=== PATIENT | female | born 1955 | race Caucasian/White ===

== ENCOUNTER → 2016-07-19 | Outpatient (CLI) | payer OTHER ==
[~2016-07-19] MED LIST: ESTR0.3T PO; HYDR-3138 PO; HYDR25TA6 PO; OMEP-110 PO; POTA10TA17 PO; Statin PO
== END | disposition home or self-care (01) ==
LOC: STAR 13:20
PROVIDERS: ATTEND Thoracic Surgery (Cardiothoracic Vascular Surgery)
DX: Z01.818 Encounter for other preprocedural examination (principal)
CPT/HCPCS: 93005

== ENCOUNTER 2016-08-29 11:56 | Inpatient (IN) | payer OTHER ==
[~2016-08-29] VITALS: Ht 152.4 cm; Wt 103.9 kg
[~2016-08-29 11:56] MED LIST changes: +BUPIVACAINE/PF-EPI 0.5% 1:200K ONE
[2016-08-29] MEDS ORDERED: LACTATED RINGERS 1,000 ML IV SCH (12:19)
[2016-08-29 12:51] VITALS: BP 156/93
[2016-08-29] MEDS ORDERED: NEOSTIGMINE 1 MG/ML, 10ML ONE (15:50)
[2016-08-29] MEDS ORDERED: DEXAMETHASONE 4 MG/ML, 1ML ONE (15:50)
[2016-08-29] MEDS ORDERED: GLYCOPYRROLATE 0.2MG/1ML ONE (15:50)
[2016-08-29] MEDS ORDERED: PROPOFOL 10 MG/ML, 20ML ONE (15:50)
[2016-08-29] MEDS ORDERED: KETOROLAC 30 MG/1 ML ONE ×2 (15:50→19:11)
[2016-08-29] MEDS ORDERED: ONDANSETRON 2MG/ML, 2ML ONE (15:50)
[2016-08-29] MEDS ORDERED: CEFAZOLIN 1,000 MG ONE (15:50)
[2016-08-29] MEDS ORDERED: ROCURONIUM 10 MG/ML ONE (15:50)
[2016-08-29] MEDS ORDERED: FENTANYL PF 250 MCG/5ML ONE (15:52)
[2016-08-29] MEDS ORDERED: FENTANYL PF 100 MCG/2ML IV PRN (16:30)
[2016-08-29] MEDS ORDERED: METOPROLOL 1 MG/ML, 5ML IV PRN (16:30)
[2016-08-29] MEDS ORDERED: PROMETHAZINE 25 MG/ML, 1ML IV PRN (16:30)
[2016-08-29] MEDS ORDERED: MEPERIDINE/PF 25MG/0.5ML IVPush PRN (16:30)
[2016-08-29] MEDS ORDERED: OXYcodone 5 MG/5 ML ORAL.SOL UDC PO PRN ×2 (16:30→18:30)
[2016-08-29] MEDS ORDERED: ALBUTEROL/IPRATROPIUM 2.5MG/0.5MG, 3 ML NPPB PRN (16:30)
[2016-08-29] MEDS ORDERED: hydrALAzine 20 MG/ML, 1ML IV PRN ×2 (16:30→18:30)
[2016-08-29] MEDS ORDERED: ACETAMINOPHEN 325 MG TABLET PO PRN (16:30)
[2016-08-29] MEDS ORDERED: HYDROmorphone 1 MG/ML, 1ML ONE ×3 (16:47→19:18)
[2016-08-29] MEDS ORDERED: ENALAPRILAT 1.25 MG/ML, 2ML IV PRN (18:30)
[2016-08-29] MEDS ORDERED: PROMETHAZINE 12.5 MG SUPP PR PRN (18:30)
[2016-08-29] MEDS ORDERED: PROMETHAZINE 25 MG/ML, 1ML IM PRN (18:30)
[2016-08-29] MEDS ORDERED: LORazepam 1MG TABLET PO PRN (18:30)
[2016-08-29] MEDS ORDERED: DIPHENHYDRAMINE 25 MG CAPSULE PO PRN (18:30)
[2016-08-29] MEDS ORDERED: ONDANSETRON 2MG/ML, 2ML IVPush PRN (18:30)
[2016-08-29] MEDS ORDERED: LORazepam 2 MG/ML, 1ML IV PRN (18:30)
[2016-08-29] MEDS ORDERED: DIPHENHYDRAMINE 50 MG/ML, 1ML IV PRN (18:30)
[2016-08-29] MEDS ORDERED: OXYcodone 5 MG/5 ML ORAL.SOL UDC ONE (18:41)
[2016-08-29] MEDS ORDERED: ACETAMINOPHEN 650 MG/20.3 ML UDC ONE (18:42)
[2016-08-29] MEDS ORDERED: ACETAMINOPHEN 325 MG/10.15 ML UDC ONE (18:42)
[2016-08-29] MEDS: HYDROmorphone 1 MG/ML, 1ML IV PRN ×3 (19:00→19:20)
[2016-08-29] MEDS ORDERED: PROMETHAZINE 25 MG/ML, 1ML ONE (19:30)
[2016-08-29 20:05] VITALS: BP 139/86
[2016-08-29] MEDS: FAMOTIDINE 20 MG/2 ML IV SCH (21:50)
[2016-08-29] MEDS: LACTATED RINGERS 1,000 ML IV SCH (23:52)
[2016-08-29 23:56] VITALS: BP 122/86
[2016-08-30] MEDS: CEFAZOLIN PMX 2GM/50ML 50 ML IVPB SCH ×2 (00:46→08:18)
[2016-08-30 03:12] VITALS: BP 139/86
[2016-08-30 07:01] VITALS: BP 106/69
[2016-08-30] MEDS: LACTATED RINGERS 1,000 ML IV SCH ×2 (08:18→15:37)
[2016-08-30] MEDS: FAMOTIDINE 20 MG/2 ML IV SCH ×2 (09:53→21:40)
[2016-08-30] MEDS: ENOXAPARIN 40 MG/0.4 ML SQ SCH (09:53)
[2016-08-30 14:14] VITALS: BP 127/76
[2016-08-30] MEDS: KETOROLAC 30 MG/1 ML IV PRN ×2 (15:37→21:40)
[2016-08-30 18:54] VITALS: BP 124/67
[2016-08-31 01:51] VITALS: BP 136/80
[2016-08-31] MEDS: LACTATED RINGERS 1,000 ML IV SCH ×2 (02:02→08:00)
[2016-08-31] MEDS: KETOROLAC 30 MG/1 ML IV PRN ×2 (04:03→10:13)
[2016-08-31] MEDS: FAMOTIDINE 20 MG/2 ML IV SCH (08:42)
[2016-08-31] MEDS: ENOXAPARIN 40 MG/0.4 ML SQ SCH (08:42)
[2016-08-31 09:25] VITALS: BP 124/65
[2016-08-31] MEDS ORDERED: MORPHINE SULFATE 4 MG/ML, 1ML IVPush PRN (10:00)
[2016-08-31 12:51] VITALS: BP 137/88
== END 2016-08-31 14:45 | disposition home or self-care (01) | DRG 354 ==
LOC: OUT 11:56 → ORIP 18:23 → 4NOR 19:55
PROVIDERS: ADMIT Thoracic Surgery (Cardiothoracic Vascular Surgery); ATTEND Thoracic Surgery (Cardiothoracic Vascular Surgery)
PROC: 8E0W4CZ Robotic Assisted Procedure of Trunk Region, Percutaneous Endoscopic Approach (ICD-10-PCS; 2016-08-29)
PROC: 0WUF4JZ Supplement Abdominal Wall with Synthetic Substitute, Percutaneous Endoscopic Approach (ICD-10-PCS; principal; 2016-08-29 15:30)
DX: K43.2 Incisional hernia without obstruction or gangrene (principal); Z68.41 Body mass index [BMI] 40.0-44.9, adult; E66.9 Obesity, unspecified
CPT/HCPCS: J0690; J1100; J1170; J1650; J1885; J2270; J2405; J2550; J2704; J2710; J3010; J3490; C1781; J7120; S0028